=== PATIENT | female | born 1975 | race African-American/Black ===

== ENCOUNTER 2019-10-31 22:26 | Emergency (ER) | payer SELFPAY | END 2019-10-31 22:35 | disposition home or self-care (01) | LOC: ER 22:26 | DX: S31.050A Open bite of lower back and pelvis without penetration into retroperitoneum, initial encounter (principal); Z53.21 Procedure and treatment not carried out due to patient leaving prior to being seen by health care provider; Y92.89 Other specified places as the place of occurrence of the external cause ==